=== PATIENT | male | born 1960 | race Caucasian/White ===

== ENCOUNTER 2019-07-25 18:22 | Inpatient (IN) | payer OTHER ==
[2019-07-25 20:35] VITALS: BMI 25.1
--- NOTE | 2019-07-26 02:48 | HP ---
CIWA Score Nausea/Vomitin-Mild Nausea/No Vomiting Muscle Tremors: 4-Moderate,w/Arms Extend Anxiety: 4-Mod. Anxious/Guarded Agitation: 2 Paroxysmal Sweats: 2 Orientation: 1-Uncertain about Date Tacttile Disturbances: 0-None Auditory Disturbances: 0-None Visual Disturbances: 0-None Headache: 5-Severe CIWA-Ar Total Score: 19 - Admission Criteria [facility] Guidelines: Admission for Medically Managed Detox: Requires at least one of the followin. CIWA greater than 12 2. Seizures within the past 24 hours 3. Delirium tremens within the past 24 hours 4. Hallucinations within the past 24 hours 5. Acute intervention needed for co occurring medical disorder 6. Acute intervention needed for co occurring psychiatric disorder 7. Severe withdrawal that cannot be handled at a lower level of care (continued vomiting, continued diarrhea, abnormal vital signs) requiring intravenous medication and/or fluids 8. Admission [facility] - [facility] Chief Complaint: Alcohol withdrawal symptoms Allergies/Adverse Reactions: Allergies Allergy/AdvReac Type Severity Reaction Status Date / Time No Known Allergies Allergy Verified 07/25/19 20:30 History of Present Illness: 59 years old male with a long history of alcohol dependence is seeking admission to detox. This is first admission to [facility]. He denies past medical and psych history. He denies seizures, blackouts and suicidal ideation at this time Exam Limitations: No Limitations - Ebola screening Have you traveled outside of the country in the last 21 days: No (N) Have you had contact with anyone from an Ebola affected area: No Do you have a fever: No - Review of Systems Constitutional: Chills, Malaise, Night Sweats, Changes in sleep EENT: reports: Nose Congestion Respiratory: reports: No Symptoms reported Cardiac: reports: No Symptoms Reported GI: reports: Diarrhea (x 2), Nausea, Poor Appetite, Poor Fluid Intake, Vomiting , Abdominal cramping : reports: No Symptoms Reported Musculoskeletal: reports: Back Pain, Joint Pain Integumentary: reports: Dryness, Flushing Neuro: reports: Headache, Tremors Endocrine: reports: No Symptoms Reported Hematology: reports: No Symptoms Reported Psychiatric: reports: Mood/Affect Appropiate, Orientated x3 Other Systems: Reviewed and Negative Patient History - Patient Medical History Hx Anemia: No Hx Asthma: No Hx Chronic Obstructive Pulmonary Disease (COPD): No Hx Cancer: No Hx Cardiac Disorders: No Hx Congestive Heart Failure: No Hx Hypertension: No Hx Hypercholesterolemia: No Hx Pacemaker: No HX Cerebrovascular Accident: No Hx Seizures: No Hx Dementia: No Hx Diabetes: No Hx Gastrointestinal Disorders: No Hx Liver Disease: No Hx Genitourinary Disorders: No Hx Sexually Transmitted Disorders: No Hx Renal Disease (ESRD): No Hx Thyroid Disease: No Hx Human Immunodeficiency Virus (HIV): No (Negative 2017) Hx Hepatitis C: No Hx Depression: No Hx Suicide Attempt: No (Deniews suicidal ideation at this time) Hx Bipolar Disorder: No Hx Schizophrenia: No - Patient Surgical History Past Surgical History: No - PPD History Previous Implant?: No Documented Results: Negative w/o proof Implanted On Prior [facility] Admission?: No PPD to be Administered?: Yes - Reproductive History Patient is a Female of Child Bearing Age (11 -55 yrs old): No (male) - Smoking Cessation Smoking history: Current every day smoker Have you smoked in the past 12 months: Yes Aproximately how many cigarettes per day: 40 Hx Chewing Tobacco Use: No Initiated information on smoking cessation: Yes 'Breaking Loose' booklet given: 07/26/19 - Substance & Tx. History Hx Alcohol Use: Yes Hx Substance Use: No Substance Use Type: Alcohol Hx Substance Use Treatment: Yes - Substances abused Alcohol Substance route: Oral Frequency: Daily Amount used: 1 pint of vodka Age of first use: 17 Date of last use: 07/24/19 Marijuana/Hashish Substance route: Smoking Frequency: Daily Amount used: $20 Age of first use: 17 Date of last use: 07/24/19 Admission Physical Exam [facility] - Vital Signs Vital Signs: Vital Signs - 24 hr 07/25/19 20:29 Temperature 97.1 F L Pulse Rate 98 H Respiratory 18 Rate Blood Pressure 120/79 - Physical General Appearance: Yes: Within Normal Limits HEENTM: Yes: Within Normal Limits, Normal ENT Inspection, Normocephalic Respiratory: Yes: Lungs Clear, Normal Breath Sounds, No Respiratory Distress Breast: Yes: Within Normal Limits Cardiology: Yes: Tachycardia Abdominal: Yes: Normal Bowel Sounds, Protuberent Genitourinary: Yes: Within Normal Limits Back: Yes: Normal Inspection Musculoskeletal: Yes: Within Normal Limits Neurological: Yes: Within Normal Limits, Alert, Normal Mood/Affect Integumentary: Yes: Warm Lymphatic: Yes: Within Normal Limits - Diagnostic (1) Alcohol dependence with withdrawal, uncomplicated Current Visit: Yes Status: Acute (2) Nicotine dependence Current Visit: Yes Status: Chronic (3) Cannabis dependence Current Visit: Yes Status: Acute Cleared for Admission [facility] - Detox or Rehab [facility] Level of Care: Medically Managed Detox Regimen/Protocol: Valium Inpatient Rehab Admission - Rehab Decision to Admit Inpatient rehab admission?: No
[2019-07-26] MEDS ORDERED: MAG HYDROX/AL HYDROX/SIMETH 30 ML UNIT-DOSE CUP PO PRN (03:02)
[2019-07-26] MEDS ORDERED: METHOCARBAMOL 500 MG TABLET PO PRN (03:02)
[2019-07-26] MEDS ORDERED: MELATONIN 5 MG TABLETS PO PRN (03:02)
[2019-07-26] MEDS ORDERED: MAGNESIUM HYDROX 2400MG/30ML ORAL SUSPENSION 30 ML CUP PO PRN (03:02)
[2019-07-26] MEDS ORDERED: ACETAMINOPHEN 325 MG TABLET (FP) PO PRN ×2 (03:02)
[2019-07-26] MEDS ORDERED: NICOTINE POLACRILEX 2 MG GUM BUC PRN (03:02)
[2019-07-26] MEDS ORDERED: BISMUTH SUBSALICYLATE 524 MG/30 ML UD PO PRN (03:02)
[2019-07-26] MEDS ORDERED: MAGNESIUM CITRATE 300 ML BOTTLE PO PRN (03:02)
[2019-07-26] MEDS ORDERED: MENTHOL/PHENOL 1 EACH UD MM PRN (03:02)
[2019-07-26] MEDS ORDERED: chlordiazePOXIDE HCL 25 MG CAPSULE PO PRN (03:08)
[2019-07-26] MEDS: IBUPROFEN 400 MG TABLET (FP) PO PRN (04:11)
[2019-07-26] MEDS: chlordiazePOXIDE HCL 25 MG CAPSULE PO SCH ×4 (06:56→22:19)
[2019-07-26] MEDS: PRENATAL VITAMINS W/ FOLIC ACID TABLET (FP) PO SCH (10:13)
[2019-07-26] MEDS: NICOTINE 21 MG/24 HOURS TOPICAL PATCH TD SCH (10:14)
--- NOTE | 2019-07-26 11:19 | PN ---
S CIWA - CIWA Score Nausea/Vomitin-No Nausea/No Vomiting Muscle Tremors: 4-Moderate,w/Arms Extend Anxiety: 3 Agitation: 4-Moderately Restless Paroxysmal Sweats: 3 Orientation: 0-Oriented Tacttile Disturbances: 0-None Auditory Disturbances: 0-None Visual Disturbances: 0-None Headache: 0-None Present CIWA-Ar Total Score: 14 [facility] Progress Note (SOAP) Subjective: sweats shakes interrupted sleep body aches tired Objective: 07/26/19 11:18 Vital Signs Temperature 96.4 F L 07/26/19 05:14 Pulse Rate 84 07/26/19 05:14 Respiratory Rate 18 07/26/19 05:14 Blood Pressure 118/68 07/26/19 05:14 O2 Sat by Pulse Oximetry (%) labs pending aaox3 ambulating no acute distress Assessment: 07/26/19 11:18 withdrawals Plan: continue detox increase fluids
--- NOTE | 2019-07-26 13:43 | EKG ---
Test Reason : Blood Pressure : / mmHG Vent. Rate : 083 BPM Atrial Rate : 083 BPM P-R Int : 130 ms QRS Dur : 100 ms QT Int : 394 ms P-R-T Axes : 072 085 060 degrees QTc Int : 462 ms NORMAL SINUS RHYTHM NORMAL ECG NO PREVIOUS ECGS AVAILABLE Confirmed by MAGDA GREGORY MD ([id number]) on 07/26/2019 1:43:03 PM Referred By: RUDOLPH MOONEY Confirmed By:MAGDA GREGORY MD
--- NOTE | 2019-07-26 13:56 | CONSULT ---
[facility] Psychiatric Consult - Data Date of interview: 07/26/19 Psychiatric History: Patient was approached a few times at bedside and found profoundly asleep. At last time, he was able to wake up by hearing his name being called loudly. He told documentation writer:" I'm doing fine. I don't need to see you"
[2019-07-26] MEDS: THIAMINE HCL 100 MG TABLET (FP) PO SCH (22:19)
[2019-07-27] MEDS: IBUPROFEN 400 MG TABLET (FP) PO PRN ×2 (06:14→22:41)
[2019-07-27] MEDS: chlordiazePOXIDE HCL 25 MG CAPSULE PO SCH ×4 (06:15→22:39)
[2019-07-27] MEDS: NICOTINE 21 MG/24 HOURS TOPICAL PATCH TD SCH (10:23)
[2019-07-27] MEDS: PRENATAL VITAMINS W/ FOLIC ACID TABLET (FP) PO SCH (10:23)
[2019-07-27 12:36] LABS: HEMOGLOBIN 13.8 GM/dL (11.7-16.9); MCH 31.7 pg (25.7-33.7); MCHC 33.7 g/dl (32.0-35.9); MEAN CELL VOLUME 93.9 fl (80-96); MEAN PLT VOLUME 8.7 fl (7.5-11.1); PLATELET COUNT 219 K/MM3 (134-434); RBC 4.37 M/mm3 (4.00-5.60); RDW 14.6 % (11.9-15.9); WHITE BLOOD COUNT 7.8 K/mm3 (4.0-10.0)
[2019-07-27 13:05] LABS: ALBUMIN 3.4 g/dl (3.4-5.0); BILIRUBIN,TOTAL 0.6 mg/dL (0.2-1); BLOOD UREA NITROGEN 15.6 mg/dL (7-18); CALCIUM 9.3 mg/dL (8.5-10.1); CREATININE 0.6 mg/dL (0.55-1.3); POTASSIUM 4.3 mmol/L (3.5-5.1); TOT PROT 6.9 g/dl (6.4-8.2)
--- NOTE | 2019-07-27 14:17 | PN ---
S CIWA - CIWA Score Nausea/Vomitin-No Nausea/No Vomiting Muscle Tremors: None Anxiety: 3 Agitation: 2 Paroxysmal Sweats: 2 Orientation: 0-Oriented Tacttile Disturbances: 1-Very Mild Itch/Numbness Auditory Disturbances: 0-None Visual Disturbances: 0-None Headache: 0-None Present CIWA-Ar Total Score: 8 BHS Progress Note (SOAP) Subjective: Sweating, Tremors, Anxious, Restless. Objective: PATIENT A & O X 3, OBSERVED AMBULATING ON DETOX UNIT UNASSISTED. IN NO ACUTE DISTRESS. 07/27/19 14:17 Vital Signs Temperature 97.9 F 07/27/19 13:26 Pulse Rate 78 07/27/19 13:26 Respiratory Rate 18 07/27/19 13:26 Blood Pressure 147/84 07/27/19 13:26 O2 Sat by Pulse Oximetry (%) Laboratory Tests 07/27/19 07/27/19 07/27/19 07:30 07:30 07:30 WBC 7.8 RBC 4.37 Hgb 13.8 Hct 41.0 MCV 93.9 MCH 31.7 MCHC 33.7 RDW 14.6 Plt Count 219 MPV 8.7 Sodium 138 Potassium 4.3 Chloride 106 Carbon Dioxide 26 Anion Gap 6 L BUN 15.6 Creatinine 0.6 Est GFR (CKD-EPI)AfAm 128.45 Est GFR (CKD-EPI)NonAf 110.83 Random Glucose 155 H Calcium 9.3 Total Bilirubin 0.6 AST 23 ALT 24 Alkaline Phosphatase 152 H Total Protein 6.9 Albumin 3.4 RPR Titer Nonreactive LABS NOTED. Assessment: 07/27/19 14:19 WITHDRAWAL SYMPTOMS. HYPERGLYCEMIA. NO HISTORY OF DM REPORTED BY PATIENT ON DETOX ADMISSION ASSESSMENT REPORT. ELEVATED ALKALINE PHOSPHATASE LEVEL. 07/27/19 14:20 Plan: CONTINUE DETOX. INCREASE DAILY ORAL WATER INTAKE.
[2019-07-27] MEDS: THIAMINE HCL 100 MG TABLET (FP) PO SCH (22:39)
[2019-07-28] MEDS ORDERED: chlordiazePOXIDE HCL 10 MG CAPSULE PO PRN
[2019-07-28] MEDS: chlordiazePOXIDE HCL 10 MG CAPSULE PO SCH ×2 (06:59→10:17)
[2019-07-28] MEDS: PRENATAL VITAMINS W/ FOLIC ACID TABLET (FP) PO SCH (10:17)
[2019-07-28] MEDS: NICOTINE 21 MG/24 HOURS TOPICAL PATCH TD SCH (10:17)
[2019-07-28 13:37] VITALS: BP 142/92; PULSE 71; TEMP 97.3
--- NOTE | 2019-07-28 14:51 | DS ---
[facility] Detox Discharge Summary Admission Date: 07/26/19 Discharge Date: 07/28/19 - History Present History: Alcohol Dependence, Cannabis Dependence Additional Comments: Patient demanded to leave AMA despite encouragement from staff to complete detox. As per patient, he just have to leave and he doesn't care if he leaves AMA. Patient instructed to call 911 if sick/withdrawal sxs and to see his PCP within 3 days in which he verbalized understanding. Pertinent Past History: Alcohol dependence Cannabis dependence Nicotine dependence - Physical Exam Results Vital Signs: Vital Signs Temperature 97.3 F L 07/28/19 13:36 Pulse Rate 71 07/28/19 13:36 Respiratory Rate 18 07/28/19 13:36 Blood Pressure 142/92 07/28/19 13:36 O2 Sat by Pulse Oximetry (%) Pertinent Admission Physical Exam Findings: Withdrawal sxs Laboratory Tests 07/27/19 07/27/19 07/27/19 07:30 07:30 07:30 WBC 7.8 RBC 4.37 Hgb 13.8 Hct 41.0 MCV 93.9 MCH 31.7 MCHC 33.7 RDW 14.6 Plt Count 219 MPV 8.7 Sodium 138 Potassium 4.3 Chloride 106 Carbon Dioxide 26 Anion Gap 6 L BUN 15.6 Creatinine 0.6 Est GFR (CKD-EPI)AfAm 128.45 Est GFR (CKD-EPI)NonAf 110.83 Random Glucose 155 H Fasting Glucose Calcium 9.3 Total Bilirubin 0.6 AST 23 ALT 24 Alkaline Phosphatase 152 H Total Protein 6.9 Albumin 3.4 RPR Titer Nonreactive 07/28/19 07:20 WBC RBC Hgb Hct MCV MCH MCHC RDW Plt Count MPV Sodium Potassium Chloride Carbon Dioxide Anion Gap BUN Creatinine Est GFR (CKD-EPI)AfAm Est GFR (CKD-EPI)NonAf Random Glucose Fasting Glucose 120 H Calcium Total Bilirubin AST ALT Alkaline Phosphatase Total Protein Albumin RPR Titer Labs reviewed: elevated alk phos and hyperglycemia noted: instructed to follow up with PCP within 3 days and for abnormal lab results - Medication Discharge Medications: Ambulatory Orders NK [No Known Home Medication] 07/25/19 - Diagnosis (1) Alcohol dependence with withdrawal, uncomplicated Current Visit: Yes Status: Acute (2) Cannabis dependence Current Visit: Yes Status: Acute (3) Elevated alkaline phosphatase level Current Visit: Yes Status: Acute (4) Hyperglycemia Current Visit: Yes Status: Acute (5) Nicotine dependence Current Visit: Yes Status: Chronic - AMA Did Patient Leave Against Medical Advice: Yes (Instructed to call 911 FISH if sick or withdrawal sxs)
[2019-07-29] MEDS ORDERED: chlordiazePOXIDE HCL 10 MG CAPSULE PO SCH (05:00)
[2019-07-30] MEDS ORDERED: chlordiazePOXIDE HCL 10 MG CAPSULE PO ONE (05:00)
== END 2019-07-28 14:36 | disposition left against medical advice (07) | DRG 770 ==
LOC: YASAS 18:22 → Y6N 07-26 03:14
PROVIDERS: ADMIT Neuromusculoskeletal Medicine & OMM; ATTEND Neuromusculoskeletal Medicine & OMM
PROC: HZ2ZZZZ Detoxification Services for Substance Abuse Treatment (ICD-10-PCS; principal; 2019-07-26)
DX: F10.230 Alcohol dependence with withdrawal, uncomplicated (principal); F12.20 Cannabis dependence, uncomplicated; F17.213 Nicotine dependence, cigarettes, with withdrawal; R74.0 Nonspecific elevation of levels of transaminase and lactic acid dehydrogenase [LDH]; R73.9 Hyperglycemia, unspecified; R00.0 Tachycardia, unspecified
CPT/HCPCS: 36415; 80053; 82947; 85027; 86593; 93005; 93010

== ENCOUNTER 2025-02-25 10:36 | Inpatient (IN) | payer OTHER ==
[2025-02-25] MEDS ORDERED: NICOTINE POLACRILEX 2 MG GUM BUC PRN (11:35)
[2025-02-25] MEDS ORDERED: LOPERAMIDE HCL 2 MG CAPSULE PO PRN ×2 (11:35→14:31)
[2025-02-25] MEDS ORDERED: BISMUTH SUBSALICYLATE 524 MG/30 ML PO PRN ×2 (11:35→14:31)
[2025-02-25] MEDS ORDERED: IBUPROFEN 400 MG TABLET (FP) PO PRN ×2 (11:35→14:31)
[2025-02-25] MEDS ORDERED: ACETAMINOPHEN 325 MG TABLET (FP) PO PRN ×2 (11:35→14:31)
[2025-02-25] MEDS ORDERED: DICYCLOMINE HCL 10 MG CAPSULE PO PRN ×2 (11:35→14:31)
[2025-02-25] MEDS ORDERED: MAGNESIUM HYDROX 2400MG/30ML ORAL SUSPENSION 30 ML CUP PO PRN ×2 (11:35→14:31)
[2025-02-25] MEDS ORDERED: ONDANSETRON *ODT* 4 MG TABLET SL PRN ×2 (11:35→14:31)
[2025-02-25] MEDS ORDERED: BENZONATATE 200 MG CAPSULE PO PRN ×2 (11:35→14:31)
[2025-02-25] MEDS ORDERED: METHOCARBAMOL 500 MG TABLET PO PRN (11:35)
[2025-02-25] MEDS ORDERED: guaiFENesin 600 MG TABLET.ER (FP) PO PRN ×2 (11:35→14:31)
[2025-02-25] MEDS ORDERED: MAG HYDROX/AL HYDROX/SIMETH 30 ML UNIT-DOSE CUP PO PRN ×2 (11:35→14:31)
[2025-02-25] MEDS ORDERED: NALOXONE (NARCAN) HCL 4 MG/0.1 ML SPRAY NS PRN (11:35)
[2025-02-25] MEDS ORDERED: BENZOCAINE/MENTHOL (CHLORASEPTIC ) LOZENGE MM PRN ×2 (11:35→14:31)
[2025-02-25] MEDS ORDERED: IBUPROFEN 600 MG TABLET (FP) PO PRN (11:35)
[2025-02-25] MEDS ORDERED: POLYETHYLENE GLYCOL (HEALTHYLAX) 3350 17 GM PACKET PO PRN ×2 (11:35→14:31)
[2025-02-25] MEDS ORDERED: hydrOXYzine PAMOATE 25 MG CAPSULE (FP) PO PRN (11:35)
[2025-02-25] MEDS ORDERED: PNEUMOC 20-VAL CONJ-DIP CRM/PF 0.5 ML SYRINGE IM ONE (11:52)
[2025-02-25] MEDS ORDERED: PRENATAL VITAMINS W/ FOLIC ACID TABLET (FP) PO ONE (12:19)
[2025-02-25 13:02] VITALS: BMI 27.8
[2025-02-25] MEDS: NICOTINE 14 MG/24 HOURS TOPICAL PATCH TD SCH (13:10)
[2025-02-25] MEDS: NICOTINE POLACRILEX 2 MG LOZENGE BC PRN (13:13)
[2025-02-25] MEDS: PNEUMOC 20-VAL CONJ-DIP CRM/PF 0.5 ML SYRINGE IM ONE ×2 (13:15)
[2025-02-25] MEDS ORDERED: NICOTINE 14 MG/24 HOURS TOPICAL PATCH TD SCH ×3 (14:27→14:45)
[2025-02-25] MEDS ORDERED: NICOTINE POLACRILEX 4 MG GUM BUC PRN (14:31)
[2025-02-25] MEDS: PRENATAL VITAMINS W/ FOLIC ACID TABLET (FP) PO SCH (15:07)
[2025-02-25] MEDS: NICOTINE POLACRILEX 4 MG LOZENGE BC PRN (15:11)
[2025-02-25] MEDS ORDERED: THIAMINE 100 MG TABLET PO SCH (22:00)
[2025-02-25] MEDS ORDERED: MELATONIN 5 MG TABLETS PO SCH (22:00)
[2025-02-25] MEDS: METHOCARBAMOL 500 MG TABLET PO PRN (22:29)
[2025-02-25] MEDS: MELATONIN 5 MG TABLETS PO SCH (22:29)
[2025-02-25] MEDS: THIAMINE 100 MG TABLET PO SCH (22:29)
[2025-02-26] MEDS: NICOTINE 21 MG/24 HOURS TOPICAL PATCH TD SCH (09:48)
[2025-02-26] MEDS ORDERED: PRENATAL VITAMINS W/ FOLIC ACID TABLET (FP) PO SCH (10:00)
[2025-02-26 12:59] LABS: MCHC 33.7 g/dl (32.3-36.5); MEAN CELL VOLUME 94.3 fl (79.0-92.2); MEAN PLT VOLUME 10.5 fl (9.4-12.4); RDW 13.2 % (12.2-16.4)
[2025-02-26 13:24] LABS: CO2 22 mmol/L (21-32)
[2025-02-26 13:26] LABS: GLUCOSE,RANDOM 438 mg/dL (74-106)
[2025-02-26 13:28] LABS: CREATININE 0.7 mg/dL (0.55-1.3)
[2025-02-26 13:29] LABS: ALK PHOS 232 U/L (45-117); SGOT/AST 35 U/L (15-37); SGPT/ALT 44 U/L (13-61); TOT PROT 7.0 g/dl (6.4-8.2)
[2025-02-26] MEDS: hydrOXYzine PAMOATE 25 MG CAPSULE (FP) PO PRN (22:12)
[2025-02-27] MEDS: IBUPROFEN 600 MG TABLET (FP) PO PRN (10:00)
[2025-02-27] MEDS ORDERED: NICOTINE POLACRILEX 2 MG GUM BUC PRN (14:40)
[2025-02-27] MEDS ORDERED: INSULIN (NOVOLOG) ASPART 100 UNITS/ML 10ML VIAL ONE ×2 (16:47→22:18)
[2025-02-27] MEDS: INSULIN ASPART SLIDING SCALE (NOVOLOG) 1 VIAL SQ SCH (16:54)
[2025-02-27] MEDS: NALOXONE (NARCAN) HCL 4 MG/0.1 ML SPRAY NS PRN (22:22)
[2025-02-28 09:46] VITALS: RESP 16
[2025-02-28] MEDS ORDERED: INSULIN (NOVOLOG) ASPART 100 UNITS/ML 10ML VIAL ONE (11:58)
[2025-02-28 12:52] VITALS: BP 142/98; PULSE 80; TEMP 97.7
== END 2025-02-28 13:05 | disposition other institution (70) | DRG 775 ==
LOC: YASAS 10:36 → Y6N 12:09
PROVIDERS: ADMIT Neuromusculoskeletal Medicine & OMM; ATTEND Allergy & Immunology
PROC: HZ2ZZZZ Detoxification Services for Substance Abuse Treatment (ICD-10-PCS; principal; 2025-02-25)
DX: F10.230 Alcohol dependence with withdrawal, uncomplicated (principal); F17.210 Nicotine dependence, cigarettes, uncomplicated; E11.65 Type 2 diabetes mellitus with hyperglycemia
CPT/HCPCS: 36415; 80053; 80305; 80307; 82962; 83036; 85027; 86780; 87811; 90677; 93005; 93010